=== PATIENT | female | born 1985 | race American Indian/Alaskan Native ===

== ENCOUNTER 2016-06-21 17:48 | Emergency (ER) | payer MEDICAID ==
[2016-06-21 18:46] VITALS: BP 96/54
[2016-06-21] MEDS: TYLENOL PO ONE (19:06)
[2016-06-21 20:00] LABS: Basophils % (Auto) 0.4 % (0.0-1.8); Eosinophils % (Auto) 0.9 % (0.0-4.3); Hematocrit 30.3 % (30.3-42.9); Hemoglobin 10.2 gm/dl (10.1-14.3); Mean Corpuscular HGB Conc 34 % (30-34); Mean Corpuscular Hemoglobin 32 pg (28-32); Mean Corpuscular Volume 95 fl (79-97); Platelet Count 248 K/mm3 (140-440); Red Blood Count 3.19 M/mm3 (3.65-5.03); Red Cell Distribution Width 13.1 % (13.2-15.2); White Blood Count 7.4 K/mm3 (4.5-11.0)
[2016-06-21 20:11] LABS: INR 0.98 (0.87-1.13)
[2016-06-21 20:12] LABS: Alanine Aminotransferase 10 units/L (7-56); Albumin 3.8 g/dL (3.9-5); Albumin/Globulin Ratio 1.4 %; Alkaline Phosphatase 36 units/L (35-129); Anion Gap 16 mmol/L; Bilirubin,Total 0.3 mg/dL (0.1-1.2); Blood Urea Nitrogen 11 mg/dL (7-17); Calcium 8.6 mg/dL (8.4-10.2); Carbon Dioxide 24 mmol/L (22-30); Chloride 100.7 mmol/L (98-107); Glucose 75 mg/dL (65-100); Partial Thromboplastin Time 28.2 Sec. (24.2-36.6); Potassium 3.7 mmol/L (3.6-5.0); Sodium 137 mmol/L (137-145); Total Protein 6.5 g/dL (6.3-8.2)
[2016-06-21 22:22] LABS: Bilirubin,Urine NEG (Negative); Blood,Urine NEG (Negative); Ketones,Urine TR mg/dL (Negative); Leukocyte Esterase,Urine TR (Negative); Mucus,Urine 2+ /HPF; Nitrite,Urine NEG (Negative); Protein,Urine <15 mg/dL mg/dL (Negative); Urobilinogen,Urine < 2.0 mg/dL (<2.0)
--- NOTE | 2016-06-23 15:52 | ED Elopement Review ---
ED Pt Elopement review - Results review Lab results: Laboratory Tests 06/21/16 06/21/16 06/21/16 18:55 19:37 19:37 WBC 7.4 RBC 3.19 L Hgb 10.2 Hct 30.3 MCV 95 MCH 32 MCHC 34 RDW 13.1 L Plt Count 248 Lymph % (Auto) 20.3 Cuming % (Auto) 7.4 H Eos % (Auto) 0.9 Baso % (Auto) 0.4 Lymph # 1.5 Cuming # 0.5 Eos # 0.1 Baso # 0.0 Seg Neutrophils % 71.0 H Seg Neutrophils # 5.3 PT INR APTT Sodium 137 Potassium 3.7 Chloride 100.7 Carbon Dioxide 24 Anion Gap 16 BUN 11 Creatinine 0.5 L Estimated GFR > 60 BUN/Creatinine Ratio 22.00 Glucose 75 POC Glucose 135 H Calcium 8.6 Total Bilirubin 0.3 AST 17 ALT 10 Alkaline Phosphatase 36 Total Protein 6.5 Albumin 3.8 L Albumin/Globulin Ratio 1.4 HCG, Quant Urine Color Urine Turbidity Urine pH Ur Specific [place] Urine Protein Urine Glucose (UA) Urine Ketones Urine Blood Urine Nitrite Urine Bilirubin Urine Urobilinogen Ur Leukocyte Esterase Urine WBC (Auto) Urine RBC (Auto) U Epithel Cells (Auto) Urine Mucus 06/21/16 06/21/16 06/21/16 19:37 19:37 Unknown WBC RBC Hgb Hct MCV MCH MCHC RDW Plt Count Lymph % (Auto) Cuming % (Auto) Eos % (Auto) Baso % (Auto) Lymph # Cuming # Eos # Baso # Seg Neutrophils % Seg Neutrophils # PT 12.9 INR 0.98 APTT 28.2 Sodium Potassium Chloride Carbon Dioxide Anion Gap BUN Creatinine Estimated GFR BUN/Creatinine Ratio Glucose POC Glucose Calcium Total Bilirubin AST ALT Alkaline Phosphatase Total Protein Albumin Albumin/Globulin Ratio HCG, Quant 18845 H Urine Color Yellow Urine Turbidity Clear Urine pH 6.0 Ur Specific [place] 1.018 Urine Protein <15 mg/dl Urine Glucose (UA) Neg Urine Ketones Tr Urine Blood Neg Urine Nitrite Neg Urine Bilirubin Neg Urine Urobilinogen < 2.0 Ur Leukocyte Esterase Tr Urine WBC (Auto) 12.0 H Urine RBC (Auto) 3.0 U Epithel Cells (Auto) 3.0 Urine Mucus 2+ - Call Back decision Pt Call Back Decision: No action required
== END 2016-06-21 23:12 | disposition left against medical advice (07) ==
LOC: ED 17:48
DX: R51 Headache (principal); Z53.21 Procedure and treatment not carried out due to patient leaving prior to being seen by health care provider
CPT/HCPCS: 36415; 80053; 81001; 82962; 84702; 85025; 85610; 85730; 93005; 93010

== ENCOUNTER 2016-09-03 14:37 | Outpatient (CLI) | payer OTHER, MEDICAID ==
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
[2016-09-03 15:34] VITALS: BP 100/63
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
--- NOTE | 2016-09-04 11:29 | Ultrasound Report ---
ULTRASOUND OB LIMITED History: labor Technique: Transabdominal ultrasound with Doppler interrogation. Gestation: Single Position: Cephalic Amniotic Fluid: Normal ANNIA = 14.8 cm Placenta: Anterior Placental Grade: 1 Heart Rate: 144 BPM Comment: No evidence for abruption.
== END 2016-09-03 19:25 | disposition still patient (30) ==
LOC: ED 14:37 → TRG 14:37 → ED 15:46 → EDSTATUS 16:19 → TRG 17:14
PROVIDERS: ATTEND Obstetrics & Gynecology
DX: O26.893 Other specified pregnancy related conditions, third trimester (principal); R10.9 Unspecified abdominal pain; O47.03 False labor before 37 completed weeks of gestation, third trimester; V89.2XXD Person injured in unspecified motor-vehicle accident, traffic, subsequent encounter; Z3A.29 29 weeks gestation of pregnancy
CPT/HCPCS: 76815; 76819

== ENCOUNTER 2016-09-03 19:30 | Emergency (ER) | payer OTHER, MEDICAID ==
[2016-09-03] MEDS ORDERED: TYLENOL PO ONE (20:12)
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
[2016-09-03 23:19] VITALS: BP 102/65
== END 2016-09-03 23:21 | disposition home or self-care (01) ==
LOC: ED 19:30
DX: M54.2 Cervicalgia (principal); V49.49XA Driver injured in collision with other motor vehicles in traffic accident, initial encounter; Y93.9 Activity, unspecified; Y92.9 Unspecified place or not applicable; Y99.9 Unspecified external cause status
CPT/HCPCS: 99282